=== PATIENT | female | born 1990 | race Caucasian/White ===

== ENCOUNTER 2017-03-07 05:48 | Day surgery (SDC) | payer OTHER ==
[2017-03-01 09:32] VITALS: BMI 32.2
[2017-03-07] MEDS ORDERED: Propofol 10 mg/ml Inj (20 ML) ONE (07:08)
[2017-03-07] MEDS ORDERED: Lidocaine Hydrochloride 5 ML INJ ONE (07:09)
[2017-03-07] MEDS ORDERED: cefOXitin IV 2 gm in Dextrose 2 GM/50 ML BAG IVPB ONE (07:42)
[2017-03-07] MEDS ORDERED: Strong Iodine Topical Sol. 5%-10% ONE (07:43)
[2017-03-07] MEDS ORDERED: Lactated Ringer's 1,000 ML IV ONE (07:45)
[2017-03-07] MEDS ORDERED: HYDROmorphone 0.5 mg/0.5 ml ISec IVP PRN (08:42)
[2017-03-07 11:08] VITALS: BP 120/66; PULSE 86; RESP 18; TEMP 97.4; O2SAT 98
--- NOTE | 2017-03-07 16:04 | OP ---
PROCEDURE DATE: 03/07/2017 PREOPERATIVE DIAGNOSIS: Uterine septum. POSTOPERATIVE DIAGNOSIS: Uterine septum. PROCEDURES: Hysteroscopy, resection of uterine septum, dilatation and curettage of the uterus. SURGEON: Amanda Ferreira MD FINDINGS: Uterine septum approximately 3 cm long with a base of about 2 cm, which was resected with the help of resectoscope and MyoSure. TYPE OF ANESTHESIA: General. ESTIMATED BLOOD LOSS: 1 mL. COMPLICATIONS: Nil. DESCRIPTION OF PROCEDURE: After the risks, benefits and alternatives of the planned procedures including but not limited to infection, hemorrhage, deep vein thrombosis, atelectasis, pneumonia, pulmonary embolism, damage to bladder, damage to the ureter, renal insufficiency, renal failure, wound infection, wound dehiscence, incisional hernia, keloid formation, damage to large and small intestine, damage to the inferior vena cava and the aorta requiring extensive repair, anesthesia complications, electrolyte imbalance, possibility of , fluid overload, cerebral edema, recurrence, and persistence of septum, and other complications were discussed, but are not listed above have been explained to the patient and all her questions answered. Informed consent was obtained. The patient was taken to the operating room in a stable condition. Under a suitable level of general anesthesia, she was prepped and draped in a sterile fashion after having been placed in a dorsal lithotomy position. The bladder was emptied with a straight catheterization. Examination under anesthesia revealed a normal sized uterus anteverted with no adnexal masses. A weighted speculum was inserted into the vagina. The anterior lip of the cervix was grasped using a single tooth tenaculum and endocervical curettage was performed and scant tissue was obtained. The uterus was then dilated to number 18 Russ dilator. A hysteroscope was inserted into the uterus and using both the MyoSure device and the resectoscope, the uterine septum was resected above the level of the base with minimal bleeding. It was fibrous in nature and likely avascular. At the end of the resection, the septum was submitted separately for pathology. A gentle endometrial curettage was performed and tissue was obtained and submitted separately for pathology. The instruments were then removed from the vagina. There was good hemostasis. The patient was then transferred to the recovery room in a stable condition. Sponge, needle and instrument counts were correct x2. There were no complications. Amanda Ferreira MD
== END 2017-03-07 10:55 | disposition home or self-care (01) ==
LOC: C.SDS 05:48
PROVIDERS: ATTEND Obstetrics & Gynecology Reproductive Endocrinology
DX: Q51.2 Other doubling of uterus (principal)
CPT/HCPCS: 36415; 58558; 58560; 86850; 86900; 88305; 88309; J0694; J1170; J2405; J2704; J2765; J3010; J7120

== ENCOUNTER 2017-08-22 23:59 | Emergency (ER) | payer SELFPAY ==
[2017-08-23] VITALS: BMI 32.2
[2017-08-23 00:10] VITALS: RESP 18
[2017-08-23 00:51] LABS: HCG,QUALITATIVE URINE POSITIVE (NEGATIVE)
[2017-08-23 01:14] LABS: SQUAMOUS EPITHIAL 1 /hpf (0-5); URINE BACTERIA RARE (<OCC); URINE BILIRUBIN NEGATIVE (NEGATIVE); URINE BLOOD 3+ (NEGATIVE); URINE CLARITY Hazy (Clear); URINE COLOR Yellow (YELLOW); URINE GLUCOSE (UA) NORMAL (Normal); URINE LEUKOCYTE ESTERASE NEG Leu/uL (Negative); URINE NITRATE NEGATIVE (NEGATIVE); URINE PROTEIN NEGATIVE (NEGATIVE); URINE UROBILINOGEN NORMAL mg/dL (0.2-1.0)
[2017-08-23] MEDS ORDERED: Morphine 4 MG/ML VIAL ONE (01:40)
[2017-08-23 01:51] LABS: BASO % 0.5 % (0.0-2.0); EOS # 0.1 K/uL (0.0-0.7); EOS % 1.2 % (0.0-4.0); LYMPH # 2.1 K/uL (1.0-4.3); LYMPH % 33.8 % (20.0-40.0); MEAN CELL VOLUME 79.2 fL (81.0-99.0); MEAN CORPUSCULAR HEMOGLOBIN 26.9 pg (27.0-31.0); MEAN PLATELET VOLUME 8.9 fL (7.2-11.7); MONO # 0.5 K/uL (0.0-0.8); MONO % 7.6 % (0.0-10.0); NEUT # 3.5 K/uL (1.8-7.0); NEUT % 56.9 % (50.0-75.0); RBC 4.46 Mil/uL (3.80-5.20); RED CELL DISTRIBUTION WIDTH 14.2 % (11.5-14.5); WHITE BLOOD COUNT 6.1 K/uL (4.8-10.8)
[2017-08-23 02:09] LABS: ALT/SGPT 15 U/L (9-52); AST/SGOT 20 U/L (14-36); BLOOD UREA NITROGEN 9 mg/dL (7-17); CALCIUM 9.5 mg/dl (8.6-10.4); GFR AFRICAN-AMERICAN > 60; GFR NON-AFRICAN AMERICAN > 60
--- NOTE | 2017-08-23 04:23 | US ---
EXAM: US , Transvaginal EXAM DATE/TIME: 08/23/2017 1:01 AM CLINICAL HISTORY: 27 years old, female; Signs and symptoms; Lmp or gestational age (in weeks): 06/14/17; Antepartum complications; Bleeding; ; Additional info: Vaginal bleeding, TECHNIQUE: Real-time transvaginal obstetrical ultrasound of the maternal pelvis and a first trimester with image documentation. Transvaginal imaging was used for better evaluation of the fetus and adnexa. COMPARISON: Report from a prior study of 11/11/2016. The prior study itself is currently unavailable. FINDINGS: Uterus: Measures 8.6 x 4.7 x 6.3 cm. Demonstrates two separate endometrial stripes, most likely due to an underlying Mullerian duct anomaly, such as a bicornuate uterus or septate uterus. This could be confirmed with followup pelvic MRI, on a nonemergent basis. Tiny, round cystic area seen within the right endometrial stripe, measuring 2.5 x 2.3 x 2.0 mm. This is unlikely to represent early intrauterine gestational sac. There is no adjacent decidual reaction. There is no internal pole or yolk sac identified. If this is a gestational sac, it would correspond to an estimated gestational age of less than 5 weeks. Endometrial stripe appears diffusely heterogeneous, with some small cystic areas seen within it, suspicious for blood products/clot throughout the endometrial canal, most likely secondary to a spontaneous . The endometrium appears hypervascular in some areas on color imaging, a finding which can be seen with retained products of conception. Cervix appears closed. Right ovary: Within normal limits in appearance. Measures 3.0 x 1.8 x 2.6 cm. Flow seen in the right ovary on color and Doppler imaging, with no evidence of torsion. Left ovary: Somewhat poorly seen due to gas. Grossly normal in appearance. Measures 3.3 x 2.2 x 2.7 cm. Flow seen in the left ovary on color and Doppler imaging, with no evidence of torsion. Cul-de-sac: No free fluid. IMPRESSION: Findings suspicious for a spontaneous , with blood products/clot throughout the endometrial canal, possibly associated with retained products of conception. Recommend clinical correlation. Tiny 2 mm cystic area in the endometrium, unlikely to represent an early intrauterine gestational sac, but recommend clinical correlation and followup. 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 See above for remaining findings.
--- NOTE | 2017-08-23 05:39 | C.PDOC ---
History Of Present Illness 27 y/o female, who is currently around 8 weeks , presents to the ED for evaluation suprapubic abdominal pain and vaginal bleeding with some clots which began earlier today. Patient denies trauma/injury or falls, nausea, vomiting. Pt is Time Seen by Provider: 08/23/17 01:00 Chief Complaint (Nursing): Abdominal Pain History Per: Patient History/Exam Limitations: no limitations Onset/Duration Of Symptoms: Hrs Current Symptoms Are (Timing): Still Present Location Of Pain/Discomfort: Suprapubic Quality Of Discomfort: "Pain" Associated Symptoms: denies: Nausea, Vomiting Additional History Per: Patient Abnormal Vaginal Bleeding: Yes Past Medical History Reviewed: Historical Data, Nursing Documentation, Vital Signs Vital Signs: Last Vital Signs Temp 98.8 F 08/23/17 05:53 Pulse 82 08/23/17 05:53 Resp 18 08/23/17 05:53 BP 114/78 08/23/17 05:53 Pulse Ox 98 08/23/17 06:21 - Medical History PMH: No Chronic Diseases Surgical History: Appendectomy Family History: States: Unknown Family Hx - Social History Hx Alcohol Use: No Hx Substance Use: No - Immunization History Hx Tetanus Toxoid Vaccination: No Hx Influenza Vaccination: Yes Hx Pneumococcal Vaccination: No Review Of Systems Gastrointestinal: Positive for: Abdominal Pain (suprapubic ). Negative for: Nausea, Vomiting Genitourinary: Positive for: Vaginal Bleeding Physical Exam - Physical Exam Appears: Non-toxic, No Acute Distress Skin: Normal Color, Warm, Dry Head: Atraumatic, Normacephalic Eye(s): bilateral: Normal Inspection, PERRL Oral Mucosa: Moist Neck: Supple Chest: Symmetrical, No Deformity, No Tenderness Cardiovascular: Rhythm Regular, No Murmur Respiratory: Normal Breath Sounds, No Rales, No Rhonchi, No Wheezing Gastrointestinal/Abdominal: Soft, Tenderness (suprapubic, bilaterally ), No Guarding, No Rebound Back: No CVA Tenderness Pelvic: Normal External Exam, Normal Bimanual Exam (no adnexal tenderness , no CMT), Vaginal Bleeding (active), No Vaginal Discharge, No Cervical Motion Tenderness, Cervix Open (external) Extremity: Normal ROM, Capillary Refill (less than 2 seconds ) Neurological/Psych: Oriented x3, Normal Speech, Normal Cognition ED Course And Treatment - Laboratory Results Result Diagrams: 08/23/17 01:46 02/21/18 01:46 O2 Sat by Pulse Oximetry: 98 - CT Scan/US ultrasound Other Rad Studies (CT/US): Interpreted By Me, Read By Radiologist, Radiology Report Reviewed CT/US Interpretation: EXAM: US , Transvaginal. EXAM DATE/TIME: 2017 1:01 AM. CLINICAL HISTORY: 27 years old, female; Signs and symptoms; Lmp or gestational age (in weeks): 06/14/17; Antepartum. complications; Bleeding; ; Additional info: Vaginal bleeding,. TECHNIQUE: Real-time transvaginal obstetrical ultrasound of the maternal pelvis and a first trimester . with image documentation. Transvaginal imaging was used for better evaluation of the fetus and. adnexa. COMPARISON: Report from a prior study of 11/11/2016. The prior study itself is currently unavailable. FINDINGS: Uterus: Measures 8.6 x 4.7 x 6.3 cm. Demonstrates two separate endometrial stripes, most likely. due to an underlying Mullerian duct anomaly, such as a bicornuate uterus or septate uterus. This. could be confirmed with followup pelvic MRI, on a nonemergent basis. Tiny, round cystic area seen within the right endometrial stripe, measuring 2.5 x 2.3 x 2.0 mm. This is unlikely to represent early intrauterine gestational sac. There is no adjacent decidual reaction. There is no internal pole or yolk sac identified. If this is a gestational sac, it would correspond to. an estimated gestational age of less than 5 weeks. Endometrial stripe appears diffusely heterogeneous, with some small cystic areas seen within it,. suspicious for blood products/ clot throughout the endometrial canal, most likely secondary to a spontaneous . The endometrium appears hypervascular in some areas on color imaging, a. finding which can be seen with retained products of conception. Cervix appears closed. Right ovary: Within normal limits in appearance. Measures 3.0 x 1.8 x 2.6 cm. Flow seen in the right. ovary on color and Doppler imaging, with no evidence of torsion. Left ovary: Somewhat poorly seen due to gas. Grossly normal in appearance. Measures 3.3 x 2.2 x. 2.7 cm. Flow seen in the left ovary on color and Doppler imaging, with no evidence of torsion. Cul-de- sac: No free fluid. IMPRESSION: Findings suspicious for a spontaneous , with blood products/clot throughout the. endometrial canal, possibly associated with retained products of conception. Recommend. clinical correlation. Tiny 2 mm cystic area in the endometrium, unlikely to represent an early intrauterine. gestational sac, but recommend clinical correlation and followup. 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 bicornuate uterus or septate uterus. Progress Note: Bloodwork and ultrasound ordered and reviewed. After returning from ultrasound, patient passed a very large clot of tissue. Tissue was collected and sent to lab for further evaluation. Morphine IVP administered. On reassessment, patient is resting comfortably and reports an improvement in her symptoms. 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 - Scribe Statement The provider has reviewed the documentation as recorded by the Scribe (Manju Quiroz) All medical record entries made by the Scribe were at my direction and personally dictated by me. I have reviewed the chart and agree that the record accurately reflects my personal performance of the history, physical exam, medical decision making, and the department course for this patient. I have also personally directed, reviewed, and agree with the discharge instructions and disposition.
[2017-08-23 05:54] VITALS: BP 114/78; PULSE 82; TEMP 98.8
[2017-08-23 06:19] VITALS: O2SAT 98
== END 2017-08-23 05:55 | disposition home or self-care (01) ==
LOC: SUPCPDRO 23:59 → C.ER 23:59
DX: O03.9 Complete or unspecified spontaneous abortion without complication (principal)
CPT/HCPCS: 76817; 80053; 81001; 84702; 84703; 85025; 86850; 86900; 88305; 96374; 99285; J2270

== ENCOUNTER 2017-10-06 19:38 | Emergency (ER) | payer MEDICAID, SELFPAY ==
[2017-10-06 19:38] VITALS: BMI 32.2
[2017-10-06 20:52] LABS: SQUAMOUS EPITHIAL 1 /hpf (0-5); URINE BILIRUBIN NEGATIVE (NEGATIVE); URINE BLOOD NEGATIVE (NEGATIVE); URINE CLARITY Hazy (Clear); URINE COLOR Amber (YELLOW); URINE GLUCOSE (UA) NORMAL (Normal); URINE LEUKOCYTE ESTERASE NEG Leu/uL (Negative); URINE PROTEIN NEGATIVE (NEGATIVE); URINE UROBILINOGEN NORMAL mg/dL (0.2-1.0)
[2017-10-06 20:57] LABS: HCG,QUALITATIVE URINE NEGATIVE (NEGATIVE)
[2017-10-06 21:03] LABS: ALT/SGPT 19 U/L (9-52); AST/SGOT 23 U/L (14-36); BLOOD UREA NITROGEN 10 mg/dL (7-17); GFR AFRICAN-AMERICAN > 60; GFR NON-AFRICAN AMERICAN > 60
[2017-10-06 21:10] LABS: BASO % 0.8 % (0.0-2.0); EOS # 0.1 K/uL (0.0-0.7); EOS % 1.1 % (0.0-4.0); HEMOGLOBIN 11.9 g/dL (11.0-16.0); LYMPH # 2.3 K/uL (1.0-4.3); LYMPH % 40.1 % (20.0-40.0); MEAN CELL VOLUME 78.2 fL (81.0-99.0); MEAN CORPUSCULAR HEMOGLOBIN 26.3 pg (27.0-31.0); MEAN CORPUSCULAR HGB CONC 33.6 g/dL (33.0-37.0); MEAN PLATELET VOLUME 9.5 fL (7.2-11.7); MONO # 0.5 K/uL (0.0-0.8); MONO % 8.7 % (0.0-10.0); NEUT # 2.8 K/uL (1.8-7.0); NEUT % 49.3 % (50.0-75.0); RBC 4.54 Mil/uL (3.80-5.20); RED CELL DISTRIBUTION WIDTH 13.9 % (11.5-14.5); WHITE BLOOD COUNT 5.7 K/uL (4.8-10.8)
[2017-10-06 21:15] LABS: B-TYPE NATRIURETIC PEPTIDE 53.2 pg/mL (0-450)
--- NOTE | 2017-10-06 22:12 | C.PDOC ---
History Of Present Illness 27 year old female presents to the ED after being referred by Dr. Nieto for evaluation of shortness of breath and request for workup. Patient is also complaining of dark, foul-smelling urine. She denies fever, chills. Time Seen by Provider: 10/06/17 20:12 Chief Complaint (Nursing): Medical Clearance History Per: Patient History/Exam Limitations: no limitations Onset/Duration Of Symptoms: Hrs Current Symptoms Are (Timing): Still Present Additional History Per: Patient Past Medical History Reviewed: Historical Data, Nursing Documentation, Vital Signs Vital Signs: Last Vital Signs Temp 98.1 F 10/06/17 20:00 Pulse 75 10/06/17 22:23 Resp 17 10/06/17 22:23 BP 102/75 10/06/17 22:23 Pulse Ox 99 10/07/17 00:26 - Medical History PMH: No Chronic Diseases Surgical History: Appendectomy Family History: States: Unknown Family Hx - Social History Hx Alcohol Use: No Hx Substance Use: No - Immunization History Hx Tetanus Toxoid Vaccination: No Hx Influenza Vaccination: Yes Hx Pneumococcal Vaccination: No Review Of Systems Respiratory: Positive for: Shortness of Breath Physical Exam - Physical Exam Appears: Non-toxic, No Acute Distress, Other (morbidly obese ) Skin: Normal Color, Warm, Dry Head: Atraumatic, Normacephalic Eye(s): bilateral: Normal Inspection Oral Mucosa: Moist Neck: Supple Chest: Symmetrical, No Deformity, Tenderness (digitally reproducible to sternum ) Cardiovascular: Rhythm Regular, No Murmur Respiratory: Normal Breath Sounds, No Rales, No Rhonchi, No Wheezing Gastrointestinal/Abdominal: Soft, Tenderness (digitally reproducible in epigastrium ), No Guarding, No Rebound Extremity: Normal ROM, Capillary Refill (less than 2 seconds ), No Swelling Neurological/Psych: Oriented x3, Normal Speech, Normal Cognition ED Course And Treatment - Laboratory Results Result Diagrams: 10/06/17 20:45 10/06/17 20:45 Lab Interpretation: Normal (UA neg.) Urine POC: Negative ECG: Interpreted By Me ECG Rhythm: Sinus Rhythm ECG Interpretation: Normal Rate From EC O2 Sat by Pulse Oximetry: 99 (on RA) Pulse Ox Interpretation: Normal - Radiology CXR: Interpreted by Me CXR Interpretation: Yes: No Acute Disease - CT Scan/US CT Angio Chest Other Rad Studies (CT/US): Read By Radiologist, Radiology Report Reviewed CT/US Interpretation: IMPRESSION: No acute findings. Progress Note: Bloodwork, UA, CXR, EKG, CT Angio chest ordered. Reevaluation Time: 00:28 Reassessment Condition: Improved Medical Decision Making Medical Decision Making: musculoskeletal xyphoid area discomfort, no costochondritis, no pna/pnx/PE Mild elevated d-dimer non-specific normal labs and w/u. more likely pt feels sense of difficulty to take a deep breath "for months" due to abd girth and pressure on xyphoid/epigastric area. Disposition Doctor Will See Patient In The: Office Counseled Patient/Family Regarding: Studies Performed, Diagnosis - Disposition Disposition: HOME/ ROUTINE Disposition Time: 00:29 Condition: GOOD Forms: [facility] (Icelandic) - Clinical Impression Clinical Impression: Shortness of breath, Chest wall discomfort - Scribe Statement The provider has reviewed the documentation as recorded by the Scribe (Manju Quiroz) Provider Attestation: All medical record entries made by the Scribe were at my direction and personally dictated by me. I have reviewed the chart and agree that the record accurately reflects my personal performance of the history, physical exam, medical decision making, and the department course for this patient. I have also personally directed, reviewed, and agree with the discharge instructions and disposition.
[2017-10-06] MEDS ORDERED: Iodixanol 320 MG/ML 100 ML BOTTLE IV ONE (22:40)
--- NOTE | 2017-10-07 00:22 | CT ---
EXAM: CT Angiography Chest With Intravenous Contrast EXAM DATE/TIME: 10/06/2017 10:17 PM CLINICAL HISTORY: 27 years old, female; Signs and symptoms; Shortness of breath; Additional info: SOB, + elev d-dimer TECHNIQUE: Axial computed tomographic angiography images of the chest with intravenous contrast using pulmonary embolism protocol. All CT scans at this facility use one or more dose reduction techniques, viz.: automated exposure control; ma/kV adjustment per patient size (including targeted exams where dose is matched to indication; i.e. head); or iterative reconstruction technique. MIP reconstructed images were created and reviewed. Coronal and sagittal reformatted images were created and reviewed. CONTRAST: 100 mL of VISIPAQUE 320 administered intravenously. COMPARISON: No relevant prior studies available. FINDINGS: Pulmonary arteries: No emboli in the main pulmonary arteries. No pulmonary emboli seen elsewhere however patient motion result Aorta: No aortic dissection or aneurysm. Lungs: Abdomen lung vessels may be distal pulmonary arterial branches bilaterally. No pulmonary consolidation. Pleural space: Unremarkable. No significant effusion. No pneumothorax. Heart: No pleural or pericardial effussions. No evidence of RV dysfunction. Bones/joints: No acute fracture. No dislocation. Soft tissues: Unremarkable. Lymph nodes: Unremarkable. No enlarged lymph nodes. IMPRESSION: No acute findings.
[2017-10-07 00:37] VITALS: BP 105/67; PULSE 80; RESP 20; TEMP 98.5; O2SAT 98
--- NOTE | 2017-10-07 06:56 | RAD ---
Chest x-ray two views History: Shortness of breath. Comparison: None available. Findings: No focal infiltrate or effusion. Heart size within normal limits. Impression: No focal infiltrate or effusion.
--- NOTE | 2017-10-09 17:05 | CARD ---
APPROVED REPORT EKG Measurement Heart [id number] <Conclusion> Normal sinus rhythm Normal ECG
== END 2017-10-07 01:01 | disposition home or self-care (01) ==
LOC: C.ER 19:38
DX: R06.02 Shortness of breath (principal); R07.89 Other chest pain
CPT/HCPCS: 71046; 71275; 80053; 81001; 83880; 84484; 84703; 85025; 85378; 93005; 99285; Q9967

== ENCOUNTER 2018-07-05 19:55 | Emergency (ER) | payer OTHER ==
[2018-07-05 19:55] VITALS: BMI 32.2
[2018-07-05 20:18] VITALS: BP 126/75; PULSE 80; RESP 16; TEMP 98.5; O2SAT 98
[2018-07-05] MEDS ORDERED: Albuterol-Ipratrop 3 mg / 0.5 (3 ml) UD INH STA (21:02)
--- NOTE | 2018-07-05 21:03 | C.PDOC ---
History Of Present Illness 28 y/o female presents to the ER complaining of dry cough which has been present for the past 4 days. Patient states that she has right chest and shoulder pain with coughing and movement. Patient reports that she did not take any medications for the pain. States right shoulder pain may have been present before the cough but she is unsure. Denies trauma/injury, heavy lifting, headache, fever,chills, sore throat, SOB, palpitations,nausea, vomiting, abdominal pain, vision changes, numbness, weakness, paresthesias, or any other associated complaints. Chief Complaint (Nursing): Cough, Cold, Congestion History Per: Patient History/Exam Limitations: no limitations Onset/Duration Of Symptoms: Days Current Symptoms Are (Timing): Still Present Severity: Moderate Past Medical History Reviewed: Historical Data, Nursing Documentation, Vital Signs Vital Signs: Last Vital Signs Temp 98.5 F 07/05/18 20:14 Pulse 80 07/05/18 20:14 Resp 16 07/05/18 20:14 BP 126/75 07/05/18 20:14 Pulse Ox 98 07/05/18 20:14 - Medical History PMH: No Chronic Diseases Surgical History: Appendectomy Family History: States: No Known Family Hx - Social History Hx Alcohol Use: No Hx Substance Use: No - Immunization History Hx Tetanus Toxoid Vaccination: No Hx Influenza Vaccination: Yes Hx Pneumococcal Vaccination: No Review Of Systems Except As Marked, All Systems Reviewed And Found Negative. Constitutional: Negative for: Fever, Chills ENT: Negative for: Throat Pain Cardiovascular: Positive for: Chest Pain. Negative for: Palpitations Respiratory: Positive for: Cough. Negative for: Shortness of Breath Gastrointestinal: Negative for: Nausea, Vomiting, Abdominal Pain Musculoskeletal: Positive for: Shoulder Pain Physical Exam - Physical Exam Appears: Well, Non-toxic, No Acute Distress Skin: Normal Color, Warm, Dry Head: Atraumatic, Normacephalic Eye(s): bilateral: Normal Inspection, PERRL, EOMI Ear(s): Bilateral: Normal Nose: Normal Oral Mucosa: Moist Throat: Normal, No Erythema, No Exudate Neck: Normal, Normal ROM, Supple Lymphatic: Normal Exam Chest: Symmetrical, No Deformity, Tenderness (right sided chest wall tenderness), No Ecchymosis, No Other (no rash) Cardiovascular: Rhythm Regular Respiratory: Normal Breath Sounds, No Rales, No Rhonchi, No Wheezing Gastrointestinal/Abdominal: Normal Exam, Soft, No Tenderness Back: Normal Inspection, No CVA Tenderness, No Vertebral Tenderness, No Muscle Spasm, No Paraspinal Tenderness Extremity: Normal ROM, Tenderness (tenderness to anterior aspect of right shoulder), Capillary Refill (<2s), No Deformity, No Swelling, Other (decreased abduction, flexion, ER, and IR of right shoulder) Extremity: Right: [place] Tenderness (anterior shoulder), Other (+ azul; + mane christen; + ), Bilateral: Atraumatic, No Pedal Edema, Normal Color And Temperature, Normal ROM Pulses: Left Radial: Normal, Right Radial: Normal Neurological/Psych: Oriented x3, Normal Speech, Normal Cognition, Normal Motor, Normal Sensation Gait: Steady ED Course And Treatment O2 Sat by Pulse Oximetry: 98 (RA) Pulse Ox Interpretation: Normal Medical Decision Making Medical Decision Making: Plan: * CXR * Right Shoulder XR * Duoneb * Naproxen * Lidoderm Patch Patient reports improvement of symptoms after duoneb and pain medications. CXR and Right Shoulder XR read as negative by ED attending Dr. Almanzar. Case discussed with Dr. Almanzar, who recommends discharge home with outpatient followup. Diagnostic testing results and plan of care discussed with patient. Strict instructions given regarding prescription use, importance of followup, and signs/symptoms to return to ER including worsening pain, SOB, chest pressure, lightheadedness, or any other new/worsening symptoms. Pt verbalized understanding of discussion. Patient is A&Ox3, ambluating with steady gait, with vital signs stable for discharge. Disposition - Disposition Referrals: [facility] [Outside] Milton Belle MD [Staff Provider] - Disposition: HOME/ ROUTINE Disposition Time: 20:10 Condition: GOOD Additional Instructions: Medrol dose pack as prescribed Tessalon perles every 8 hours as needed for cough Naproxen daily with food as needed for pain Lidoderm patches daily, 12 hours on, 12 hours off Rest, no strenuous activity or heavy lifting Followup with orthopedic within 2 days Followup with primary doctor within 2 days Return to ER with any new/worsening symptoms Prescriptions: Benzonatate [Tessalon Perle] 100 mg PO Q8H PRN #15 capsule PRN Reason: Cough Lidocaine 5% [Lidoderm] 1 ea TD DAILY PRN #30 patch PRN Reason: Pain, Mild (1-3) Methylprednisolone [Medrol Dose Pack (21 tabs)] 4 mg PO DAILY #21 mg Naproxen [Naprosyn] 500 mg PO DAILY PRN #14 tablet PRN Reason: Pain, Moderate (4-7) Instructions: Tendonitis, Acute Bronchitis, Rotator Cuff Tendinitis Stretching Exercises Forms: General Discharge Instructions, [facility] (Togolese), Work Excuse - Clinical Impression Clinical Impression: Bronchitis, Tendinitis, Muscle strain - 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 - Scribe Statement The provider has reviewed the documentation as recorded by the Yvon Dickey Provider Attestation All medical record entries made by the Yvon were at my direction and personally dictated by me. I have reviewed the chart and agree that the record accurately reflects my personal performance of the history, physical exam, medical decision making, and the department course for this patient. I have also personally directed, reviewed, and agree with the discharge instructions and disposition.
[2018-07-05] MEDS ORDERED: Albuterol-Ipratrop 3 mg / 0.5 (3 ml) UD ONE (21:15)
[2018-07-05] MEDS ORDERED: Naproxen 550 mg Tab PO STA (22:05)
[2018-07-05] MEDS ORDERED: Lidocaine 5% Patch TD STA (22:05)
[2018-07-05] MEDS ORDERED: Lidocaine 5% Patch TD ONE (22:11)
[2018-07-05] MEDS ORDERED: Naproxen 550 mg Tab PO ONE (22:11)
--- NOTE | 2018-07-06 08:45 | RAD ---
Date of service: 07/05/2018 HISTORY: Cough, evaluate for pneumonia COMPARISON: No prior. TECHNIQUE: Chest PA and lateral FINDINGS: LINES AND TUBES: None. LUNG AND PLEURA: The lungs are well inflated and clear. No pleural effusion or pneumothorax. HEART AND MEDIASTINUM: The heart is not enlarged. No aortic atherosclerotic calcification present. The hilar and mediastinal contours are within normal limits. SKELETAL STRUCTURES: The bony structures are within normal limits for the patient's age. VISUALIZED UPPER ABDOMEN: Normal. OTHER FINDINGS: None. IMPRESSION: No active pulmonary disease.
--- NOTE | 2018-07-06 11:18 | RAD ---
Date of service: 07/05/2018 PROCEDURE: Radiographs of the Right Shoulder HISTORY: shoulder pain COMPARISON: No prior. FINDINGS: BONES: Bone alignment and mineralization are normal. There is no acute displaced fracture or bone destruction. JOINTS: Normal. Glenohumeral and acromioclavicular joints preserved. No osteoarthritis. SOFT TISSUES: Normal. OTHER FINDINGS: None. IMPRESSION: No acute fracture or dislocation.
== END 2018-07-05 22:19 | disposition home or self-care (01) ==
LOC: C.ER 19:55
DX: J40 Bronchitis, not specified as acute or chronic (principal); M75.91 Shoulder lesion, unspecified, right shoulder; T14.8XXA Other injury of unspecified body region, initial encounter; X58.XXXA Exposure to other specified factors, initial encounter